=== PATIENT | female | born 1960 | race Caucasian/White ===

== ENCOUNTER → 2016-02-28 | Outpatient (CLI) | payer OTHER ==
[~2016-02-28] MED LIST: NAPR500T2 PO; OXYC1TAB23 PO; ibuprofen OR; symbicort INH
--- NOTE | 2016-02-28 14:02 | REP ---
Clinical: Back pain. Comparison: 06/30/2015 . Technique: AP, lateral, bilateral oblique, and coned-down views. Findings: Alignment and lordosis is maintained. The vertebral bodies including transverse process and spinous processes are intact and normal. There is no evidence for acute fracture / compression injury or subluxation. No evidence for spondylolysis or spondylolisthesis. No significant degenerative change is noted. Impression: Normal lumbosacral spine radiograph series. Signed by Erwin Ramirez MD 02/28/2016 01:53 P
== END ==
LOC: M RAD 12:02
PROVIDERS: ATTEND Family Medicine
DX: M54.9 Dorsalgia, unspecified (principal)

== ENCOUNTER → 2020-04-22 | Outpatient (CLI) | payer MEDICAID, OTHER, SELFPAY ==
[~2020-04-22] MED LIST changes: +NAPR-885 PO; -NAPR500T2 PO
[2020-04-22 12:05] LABS: HEMATOCRIT 43.3 % (36.0-47.0); MEAN CORPUSCULAR HEMOGLOBIN 30.1 pg (27.0-33.0); MEAN CORPUSCULAR HGB CONC 32.3 g/dl (32.0-36.5); MEAN CORPUSCULAR VOLUME 93.1 fl (80.0-96.0); PLATELET COUNT, AUTOMATED 346 10^3/uL (150-450); RED BLOOD COUNT 4.65 10^6/uL (4.00-5.40)
[2020-04-22 12:41] LABS: ALBUMIN 3.6 GM/DL (3.2-5.2); ALT/SGPT 38 U/L (12-78); BILIRUBIN,TOTAL 0.5 MG/DL (0.2-1.0); BLOOD UREA NITROGEN 24 MG/DL (7-18); CALCIUM LEVEL 9.4 MG/DL (8.5-10.1); CARBON DIOXIDE LEVEL 29 MEQ/L (21-32); CHLORIDE LEVEL 109 MEQ/L (98-107); CHOLESTEROL LEVEL 246 MG/DL (<200); CHOLESTEROL RISK RATIO 3.617 (<5); CREATININE FOR GFR 0.76 MG/DL (0.55-1.30); GLOMERULAR FILTRATION RATE > 60.0 (>51); GLUCOSE, FASTING 82 MG/DL (70-100); HDL CHOLESTEROL 68 MG/DL (>40); LDL CHOLESTEROL 165 MG/DL (<100); NON-HDL-C 178 MG/DL; POTASSIUM SERUM 4.2 MEQ/L (3.5-5.1); SODIUM LEVEL 141 MEQ/L (136-145); TOTAL 25(OH) VITAMIN D 30.9 NG/ML (30.0-100.0); TRIGLYCERIDES LEVEL 65 MG/DL (<150)
[2020-04-22 12:53] LABS: HEMOGLOBIN A1c 5.4 %
--- NOTE | 2020-04-22 13:37 | REP ---
INDICATION: ANEMIA/ PT HAS LABS FIRST. COMPARISON: Comparison chest x-ray October 28, 2015. TECHNIQUE: Two views.. FINDINGS: The lungs are well inflated and free of infiltrate. The pleural angles are sharp. The heart size is normal. Pulmonary vasculature is not increased. No significant bony abnormality is seen. IMPRESSION: Negative chest x-ray. <Electronically signed by Darren Abdul > 04/22/20 [id number]
== END ==
LOC: M LAB 11:03
PROVIDERS: ATTEND Family Medicine
DX: R53.83 Other fatigue (principal); J44.9 Chronic obstructive pulmonary disease, unspecified; D64.9 Anemia, unspecified

== ENCOUNTER → 2023-07-09 | Outpatient (CLI) | payer OTHER | LOC: M PLARAD 14:51 | PROVIDERS: ATTEND Physician Assistant | DX: J98.4 Other disorders of lung (principal) | CPT/HCPCS: 78815; A9552 ==

== ENCOUNTER → 2023-08-06 | Outpatient (CLI) | payer OTHER ==
[~2023-08-06] MED LIST changes: +CYCL5TAB PO; +IBUP-1022 PO; +IBUP200C25 PO; +LIDOCAINE 1% MDV 20ML VIAL As Ordered ONE; +MULTTAB24 PO; +OMEP1CAP73 PO
[2023-08-06 10:08] VITALS: TEMP 97.8
[2023-08-06 10:50] VITALS: BP 132/65; O2SAT 99
== END ==
LOC: M IRPRO 10:02
PROVIDERS: ATTEND Internal Medicine Medical Oncology
DX: R59.0 Localized enlarged lymph nodes (principal)

== ENCOUNTER 2023-08-07 10:06 | Day surgery (SDC) | payer OTHER ==
[~2023-08-07] VITALS: Ht 167.6 cm; Wt 72.4 kg
[~2023-08-07 10:06] MED LIST changes: -CYCL5TAB PO; -LIDOCAINE 1% MDV 20ML VIAL As Ordered ONE; -OMEP1CAP73 PO
[2023-08-07] MEDS ORDERED: OMEP1CAP73 PO (10:15)
[2023-08-07] MEDS ORDERED: CYCL5TAB PO (10:15)
[2023-08-07] MEDS: LR 1,000 ML IV SCH (11:15)
[2023-08-07] MEDS ORDERED: MIDAZOLAM INJ 2MG/2ML VIAL As Ordered ONE (11:35)
[2023-08-07] MEDS ORDERED: ROCURONIUM BROMIDE 50MG/5ML VIAL As Ordered ONE (11:36)
[2023-08-07] MEDS ORDERED: propofoL 200 MG/20 ML VIAL As Ordered ONE (11:36)
[2023-08-07] MEDS: LIDOCAINE W/EPINEPHRINE 1% 20ML VIAL As Ordered ONE (11:37)
[2023-08-07] MEDS ORDERED: fentaNYL 100 MCG/2 ML INJECTION As Ordered ONE (11:38)
[2023-08-07] MEDS ORDERED: LIDOCAINE 2% 100MG/5ML SDV (FOR ANES.) As Ordered ONE (11:38)
[2023-08-07] MEDS ORDERED: ACETAMINOPHEN 1000MG 100ML IV BAG As Ordered ONE (11:42)
[2023-08-07] MEDS ORDERED: ONDANSETRON 4MG 2ML VIAL As Ordered ONE (12:14)
[2023-08-07] MEDS: EPINEPHrine 1MG/ML INJ 30ML MD-VIAL As Ordered ONE (12:16)
[2023-08-07] MEDS ORDERED: SUGAMMADEX SODIUM 500 MG/5 ML VIAL (BRIDION) As Ordered ONE (12:16)
[2023-08-07] MEDS: METHYLENE BLUE 0.5% (5MG/ML) 10 ML AMP (PROVAYBLUE) As Ordered ONE (12:16)
[2023-08-07] MEDS: COCAINE 4% 4ML NASAL SOLUTION BTL As Ordered ONE (12:17)
[2023-08-07] MEDS: OXYMETAZOLINE 0.05% NASAL SPRAY (AFRIN) As Ordered ONE (12:23)
[2023-08-07] MEDS ORDERED: ONDANSETRON 4MG 2ML VIAL IV PRN (12:40)
[2023-08-07] MEDS ORDERED: fentaNYL 100 MCG/2 ML INJECTION IV PRN (12:40)
[2023-08-07] MEDS ORDERED: oxyCODONE 5MG TAB PO PRN (12:40)
[2023-08-07] MEDS: BACITRACIN OINTMENT 30GM TUBE As Ordered ONE (12:48)
[2023-08-07 13:50] VITALS: BP 144/70; TEMP 97.1; O2SAT 97
== END 2023-08-07 14:00 | disposition home or self-care (01) ==
LOC: M SDC 10:06
PROVIDERS: ATTEND Otolaryngology
DX: J34.89 Other specified disorders of nose and nasal sinuses (principal); F17.218 Nicotine dependence, cigarettes, with other nicotine-induced disorders; J44.9 Chronic obstructive pulmonary disease, unspecified; Z79.899 Other long term (current) drug therapy
CPT/HCPCS: 30117; 88305; C9143; J0131; J1100; J2250; J2405; J3010

== ENCOUNTER → 2023-08-13 | Outpatient (CLI) | payer OTHER ==
[~2023-08-13] MED LIST changes: +CYCL5TAB PO; +LIDOCAINE 1% MDV 20ML VIAL As Ordered ONE; +OMEP1CAP73 PO
[2023-08-13 10:00] VITALS: TEMP 97.7
[2023-08-13 11:20] VITALS: BP 130/80; O2SAT 97
== END ==
LOC: M IRPRO 09:46
PROVIDERS: ATTEND Otolaryngology
DX: E04.2 Nontoxic multinodular goiter (principal)

== ENCOUNTER → 2023-09-18 | Outpatient (CLI) | payer OTHER ==
[~2023-09-18] MED LIST changes: +ACET1TAB37 PO; +NICO21DI37 TOP
[2023-09-18 12:35] VITALS: TEMP 98.3
[2023-09-18 13:08] LABS: BASO % 0.4 % (0.0-1.0); EOS # 0.3 10^3/uL (0.0-0.5); EOS % 3.5 % (0.0-3.0); HEMATOCRIT 43.1 % (36.0-47.0); LYMPH # 1.9 10^3/uL (1.5-5.0); MEAN CORPUSCULAR HEMOGLOBIN 29.2 pg (27.0-33.0); MEAN CORPUSCULAR HGB CONC 32.5 g/dl (32.0-36.5); MONO # 0.6 10^3/uL (0.0-0.8); MONO % 8.7 % (2.0-8.0); NEUTROPHILS # 4.4 10^3/uL (1.5-8.5); NEUTROPHILS % 61.3 % (36.0-66.0); PLATELET COUNT, AUTOMATED 394 10^3/uL (150-450); RED BLOOD COUNT 4.79 10^6/uL (4.00-5.40); WHITE BLOOD COUNT 7.2 10^3/uL (4.0-10.0)
[2023-09-18 13:17] VITALS: BP 145/67; O2SAT 98
== END ==
LOC: M IRPRO 12:01
PROVIDERS: ATTEND Internal Medicine Medical Oncology
DX: R59.0 Localized enlarged lymph nodes (principal)

== ENCOUNTER 2023-10-08 07:46 | Day surgery (SDC) | payer OTHER ==
[~2023-10-08] VITALS: Ht 167.6 cm; Wt 72.6 kg
[~2023-10-08 07:46] MED LIST changes: -LIDOCAINE 1% MDV 20ML VIAL As Ordered ONE
[2023-10-08] MEDS ORDERED: MIDAZOLAM INJ 2MG/2ML VIAL As Ordered ONE (09:34)
[2023-10-08] MEDS ORDERED: fentaNYL 100 MCG/2 ML INJECTION As Ordered ONE (09:34)
[2023-10-08] MEDS: LR 1,000 ML IV SCH (09:48)
[2023-10-08] MEDS: ISOSULFAN BLUE(LYMPHAZURIN) 1% 50MG/5ML VIAL As Ordered ONE (10:21)
[2023-10-08] MEDS: ceFAZolin SOD 2 GM in IV 1 EA IV ONE (10:50)
[2023-10-08] MEDS ORDERED: ACETAMINOPHEN 1000MG 100ML IV BAG As Ordered ONE (10:59)
[2023-10-08] MEDS ORDERED: KETOROLAC 60MG 2ML VIAL As Ordered ONE (11:02)
[2023-10-08] MEDS ORDERED: ONDANSETRON 4MG 2ML VIAL As Ordered ONE (11:02)
[2023-10-08] MEDS ORDERED: LIDOCAINE 2% 100MG/5ML SDV (FOR ANES.) As Ordered ONE (11:02)
[2023-10-08] MEDS ORDERED: propofoL 200 MG/20 ML VIAL As Ordered ONE (11:02)
[2023-10-08] MEDS ORDERED: PHENYLephrine 500MCG 5ML (100MCG/ML) SYRINGE As Ordered ONE (11:04)
[2023-10-08] MEDS ORDERED: ONDANSETRON 4MG 2ML VIAL IV PRN (12:05)
[2023-10-08] MEDS ORDERED: fentaNYL 100 MCG/2 ML INJECTION IV PRN (12:05)
[2023-10-08] MEDS ORDERED: HYDROMORPHONE HCL 0.5 MG/ 0.5 ML SYRINGE IV PRN (12:05)
[2023-10-08] MEDS ORDERED: oxyCODONE 5MG TAB PO PRN (12:05)
[2023-10-08] MEDS ORDERED: LR 1,000 ML IV SCH (12:05)
[2023-10-08 13:07] VITALS: BP 105/63; TEMP 96.9; O2SAT 97
== END 2023-10-08 13:18 | disposition home or self-care (01) ==
LOC: M SDC 07:46
PROVIDERS: ATTEND Surgery
DX: C85.14 Unspecified B-cell lymphoma, lymph nodes of axilla and upper limb (principal); J44.9 Chronic obstructive pulmonary disease, unspecified; F17.218 Nicotine dependence, cigarettes, with other nicotine-induced disorders; Z79.899 Other long term (current) drug therapy
CPT/HCPCS: 10035; 38525; 88307; J0131; J0665; J0690; J1100; J1885; J2250; J2371; J2405; J3010

== ENCOUNTER 2023-10-15 06:53 | Emergency (ER) | payer OTHER ==
[~2023-10-15] VITALS: Ht 167.6 cm; Wt 76.3 kg
[2023-10-15] MEDS: ACETAMINOPHEN TAB 650MG DOSE (2X325MG) PO ONE (07:56)
[2023-10-15 08:05] LABS: BASO % 0.3 % (0.0-1.0); HEMATOCRIT 40.1 % (36.0-47.0); HEMOGLOBIN 13.1 g/dl (12.0-15.5); LYMPH % 20.2 % (24.0-44.0); MEAN CORPUSCULAR HEMOGLOBIN 28.9 pg (27.0-33.0); MEAN CORPUSCULAR HGB CONC 32.7 g/dl (32.0-36.5); MEAN CORPUSCULAR VOLUME 88.5 fl (80.0-96.0); MONO # 0.8 10^3/uL (0.0-0.8); MONO % 8.7 % (2.0-8.0); NEUTROPHILS # 6.8 10^3/uL (1.5-8.5); NEUTROPHILS % 70.6 % (36.0-66.0); PLATELET COUNT, AUTOMATED 363 10^3/uL (150-450); RED BLOOD COUNT 4.53 10^6/uL (4.00-5.40); WHITE BLOOD COUNT 9.6 10^3/uL (4.0-10.0)
[2023-10-15 10:50] VITALS: BP 124/67; TEMP 97.9; O2SAT 98
[2023-10-15] MEDS ORDERED: LIDOCAINE 1% MDV 20ML VIAL As Ordered ONE (10:58)
== END 2023-10-15 12:00 | disposition home or self-care (01) ==
LOC: M ED 06:53
DX: L76.34 Postprocedural seroma of skin and subcutaneous tissue following other procedure (principal); F17.200 Nicotine dependence, unspecified, uncomplicated; Z79.899 Other long term (current) drug therapy

== ENCOUNTER 2023-10-21 21:46 | Emergency (ER) | payer OTHER ==
[~2023-10-21] VITALS: Ht 167.6 cm; Wt 76.0 kg
[2023-10-21 21:47] VITALS: BP 145/78; TEMP 98; O2SAT 97
[2023-10-21] MEDS: NORCO 5/325MG TABLET (HOME DOSE PACK) PO ONE (23:29)
== END 2023-10-21 23:43 | disposition home or self-care (01) ==
LOC: M ED 21:46
DX: T85.698A Other mechanical complication of other specified internal prosthetic devices, implants and grafts, initial encounter (principal); L76.34 Postprocedural seroma of skin and subcutaneous tissue following other procedure; K57.92 Diverticulitis of intestine, part unspecified, without perforation or abscess without bleeding; Z88.8 Allergy status to other drugs, medicaments and biological substances

== ENCOUNTER → 2023-10-22 | Outpatient (CLI) | payer OTHER ==
[~2023-10-22] MED LIST changes: +ISOVUE-300 61% 100ML VIAL As Ordered ONE; +LIDOCAINE 1% MDV 20ML VIAL As Ordered ONE
[2023-10-22 15:30] VITALS: TEMP 97.7
[2023-10-22 16:50] VITALS: BP 130/62; O2SAT 97
== END ==
LOC: M IRPRO 15:25
PROVIDERS: ATTEND Radiology Diagnostic Radiology
DX: L76.34 Postprocedural seroma of skin and subcutaneous tissue following other procedure (principal)
CPT/HCPCS: 49423; C1729; C1769; Q9967

== ENCOUNTER 2023-12-11 10:46 | Day surgery (SDC) | payer OTHER ==
[~2023-12-11] VITALS: Ht 167.6 cm; Wt 77.6 kg
[~2023-12-11 10:46] MED LIST changes: +AMOX875T2 PO; +GABA-1172 PO; +HYDR-3713 PO; -ISOVUE-300 61% 100ML VIAL As Ordered ONE; -LIDOCAINE 1% MDV 20ML VIAL As Ordered ONE; +NS 250 ML IV ONE
[2023-12-11] MEDS ORDERED: propofoL 200 MG/20 ML VIAL As Ordered ONE (12:32)
[2023-12-11] MEDS ORDERED: LIDOCAINE 2% 100MG/5ML SDV (FOR ANES.) As Ordered ONE (12:32)
[2023-12-11] MEDS ORDERED: fentaNYL 100 MCG/2 ML INJECTION As Ordered ONE (12:58)
[2023-12-11 14:05] VITALS: BP 133/63; O2SAT 97
== END 2023-12-11 14:14 | disposition home or self-care (01) ==
LOC: M OPP 10:46
PROVIDERS: ATTEND Internal Medicine Gastroenterology
DX: K59.00 Constipation, unspecified (principal); K29.50 Unspecified chronic gastritis without bleeding; K29.80 Duodenitis without bleeding; K57.30 Diverticulosis of large intestine without perforation or abscess without bleeding; K64.8 Other hemorrhoids; R63.4 Abnormal weight loss; R12 Heartburn; R11.0 Nausea; R14.0 Abdominal distension (gaseous); C82.10 Follicular lymphoma grade II, unspecified site; Z87.19 Personal history of other diseases of the digestive system; Z79.899 Other long term (current) drug therapy; F17.210 Nicotine dependence, cigarettes, uncomplicated; Z90.710 Acquired absence of both cervix and uterus
CPT/HCPCS: 43239; 45378; 88305; J3010

== ENCOUNTER 2024-01-05 01:22 | Emergency (ER) | payer OTHER ==
[~2024-01-05] VITALS: Ht 167.6 cm; Wt 78.7 kg
[~2024-01-05 01:22] MED LIST changes: -CYCL5TAB PO; +CYCL5TAB4 PO; -NS 250 ML IV ONE
[2024-01-05 01:24] VITALS: TEMP 96.7
[2024-01-05 02:29] LABS: BASO % 0.3 % (0.0-1.0); HEMOGLOBIN 12.8 g/dl (12.0-15.5); LYMPH # 1.8 10^3/uL (1.5-5.0); LYMPH % 17.5 % (24.0-44.0); MEAN CORPUSCULAR HEMOGLOBIN 28.9 pg (27.0-33.0); MEAN CORPUSCULAR HGB CONC 32.8 g/dl (32.0-36.5); MONO # 1.2 10^3/uL (0.0-0.8); MONO % 11.1 % (2.0-8.0); NEUTROPHILS # 7.4 10^3/uL (1.5-8.5); NEUTROPHILS % 70.9 % (36.0-66.0); PLATELET COUNT, AUTOMATED 384 10^3/uL (150-450); RED BLOOD COUNT 4.43 10^6/uL (4.00-5.40); WHITE BLOOD COUNT 10.4 10^3/uL (4.0-10.0)
[2024-01-05 02:40] LABS: INR 0.93; PROTHROMBIN TIME 12.8 SECONDS (12.5-14.5)
[2024-01-05 02:56] LABS: LIPASE 37 U/L (12-53)
[2024-01-05 02:58] LABS: ALBUMIN 3.5 G/DL (3.2-5.2); ALKALINE PHOSPHATASE 111 U/L (35-104); ALT/SGPT 29 U/L (7.0-40); AST/SGOT 20 U/L (<34); BILIRUBIN,DIRECT < 0.1 MG/DL (<0.4); BILIRUBIN,TOTAL 0.2 MG/DL (0.3-1.2); BLOOD UREA NITROGEN 17 MG/DL (9-23); CALCIUM LEVEL 9.8 MG/DL (8.3-10.6); CARBON DIOXIDE LEVEL 26 MMOL/L (20-31); CHLORIDE LEVEL 108 MMOL/L (98-107); CK-MB VALUE MASS 1.6 NG/ML (<3.6); CREATININE FOR GFR 0.64 MG/DL (0.55-1.30); GLOMERULAR FILTRATION RATE > 60.0 (>45); GLUCOSE, FASTING 101 MG/DL (74-106); POTASSIUM SERUM 4.4 MMOL/L (3.5-5.1); SODIUM LEVEL 139 MMOL/L (136-145); TOTAL PROTEIN 7.6 G/DL (5.7-8.2)
[2024-01-05 02:59] LABS: CPK CREATINE PHOSPHOKINASE 256 U/L (34-145); MB/CK RELATIVE INDEX 0.62 (< OR =4)
[2024-01-05] MEDS: MAALOX 30 ML SUSP *UDC PO ONE (03:48)
[2024-01-05 03:50] LABS: CK-MB VALUE MASS 1.4 NG/ML (<3.6)
[2024-01-05 03:52] LABS: MB/CK RELATIVE INDEX 0.58 (< OR =4)
[2024-01-05] MEDS: ACETAMINOPHEN 500 MG TAB PO ONE (04:01)
[2024-01-05] MEDS ORDERED: PANT40TA29 PO (04:44)
[2024-01-05 05:01] VITALS: BP 116/56; O2SAT 97
== END 2024-01-05 05:05 | disposition home or self-care (01) ==
LOC: M ED 01:22
DX: K21.9 Gastro-esophageal reflux disease without esophagitis (principal); C82.90 Follicular lymphoma, unspecified, unspecified site; F17.200 Nicotine dependence, unspecified, uncomplicated; Z79.899 Other long term (current) drug therapy

== ENCOUNTER 2024-04-14 23:54 | Emergency (ER) | payer OTHER ==
[~2024-04-14] VITALS: Ht 167.6 cm; Wt 172.0 kg
[~2024-04-14 23:54] MED LIST changes: +PANT40TA29 PO
[2024-04-14 23:59] VITALS: BP 137/84; TEMP 97.9; O2SAT 97
== END 2024-04-15 01:17 | disposition left against medical advice (07) ==
LOC: M ED 23:54
DX: Z53.21 Procedure and treatment not carried out due to patient leaving prior to being seen by health care provider (principal)

== ENCOUNTER → 2025-02-09 | Outpatient (CLI) | payer OTHER ==
[~2025-02-09] MED LIST changes: +ACET-1592 PO; -ACET1TAB37 PO; +AZIT-12 PO; -IBUP-1022 PO; +IBUP-1114 PO; +IBUP600T42 PO; +ISOVUE-370 76% 100 ML VIAL As Ordered ONE
== END ==
LOC: M RAD 12:51
DX: C82.90 Follicular lymphoma, unspecified, unspecified site (principal)
CPT/HCPCS: 71260; Q9967